=== PATIENT | female | born 1930 | race Caucasian/White ===

== ENCOUNTER 2019-09-06 06:05 | Day surgery (SDC) | payer MEDICARE, OTHER ==
[2019-09-05 12:36] LABS: BASOPHILS % (AUTO) 0.8 % (0-1); EOSINOPHILS # (AUTO) 0.1 X10'3 (0-0.9); EOSINOPHILS % (AUTO) 2.4 % (0-6); HEMATOCRIT 36.1 % (35.0-45.0); HEMOGLOBIN 12.4 g/dl (12.0-16.0); LYMPHOCYTES % (AUTO) 19.1 % (21-51); MEAN CORPUSCULAR HEMOGLOBIN 32.8 PG (27.0-31.0); MEAN CORPUSCULAR HGB CONC 34.4 g/dL (33.0-36.5); MEAN CORPUSCULAR VOLUME 95.3 FL (78-98); MEAN PLATELET VOLUME 7.5 FL (7.4-10.4); MONOCYTES # (AUTO) 0.9 X10'3 (0-0.9); NEUTROPHILS # (AUTO) 3.3 X10'3 (1.8-7.7); NEUTROPHILS % (AUTO) 60.7 % (42-75); PLATELET COUNT 219 X10'3 (140-440); RED BLOOD COUNT 3.79 X10'6 (4.20-5.60); RED CELL DISTRIBUTION WIDTH 13.3 % (11.5-14.5); WHITE BLOOD COUNT 5.4 X10'3 (4.5-11.0)
[2019-09-05 12:46] LABS: ALBUMIN 3.7 G/DL (3.4-5.0); ANION GAP 11 (8-16); BLOOD UREA NITROGEN 41 MG/DL (7-18); CALCIUM 9.5 MG/DL (8.5-10.1); CHLORIDE 107 MMOL/L (99-107); CREATININE 1.14 MG/DL (0.40-0.90); GLUCOSE 87 MG/DL (70-104); POTASSIUM 3.9 MMOL/L (3.5-5.1); SODIUM 144 MMOL/L (135-145); TOTAL CARBON DIOXIDE 26.3 MMOL/L (24-32); eGFR 45 ML/MIN
[2019-09-05 12:51] LABS: PARTIAL THROMBOPLASTIN TIME 26 SECONDS (22-32)
[2019-09-05 13:16] LABS: TOTAL CELLS COUNTED 100
[2019-09-05 13:17] LABS: PLATELET ESTIMATE NORMAL
[~2019-09-06] VITALS: Ht 152.4 cm; Wt 85.3 kg
[2019-09-06] VITALS (13 sets, daily range): BP systolic 99–150; BP diastolic 41–74
[2019-09-06] MEDS ORDERED: ATOR20TA PO (06:30)
[2019-09-06] MEDS ORDERED: ESOM20CA PO (06:30)
[2019-09-06] MEDS ORDERED: VALS1TAB77 PO (06:30)
[2019-09-06] MEDS ORDERED: FURO-150 PO (06:30)
[2019-09-06] MEDS ORDERED: SYN0.112T PO (06:30)
[2019-09-06] MEDS ORDERED: normal saline 1000ml 1,000 ML IV SCH (06:45)
[2019-09-06] MEDS ORDERED: cefazolin/dext.iso 2gm/100ml 100 ML IV ONE (06:45)
[2019-09-06] MEDS ORDERED: fentaNYL/PF 50MCG/1 ML 2ML syringe ONE (07:40)
[2019-09-06] MEDS ORDERED: LIDOcaine 1% W/epiNEPHrine 1:100,000 20ml vial ONE ×2 (07:40→08:32)
[2019-09-06] MEDS ORDERED: ceFAZolin 1000mg inj ONE (07:40)
[2019-09-06] MEDS ORDERED: midazolam 2 mg/2 ml injection ONE (07:40)
[2019-09-06] MEDS ORDERED: HYDROcodone/acetaminophen 10/325mg tab PO PRN ×2 (10:00→10:10)
[2019-09-06] MEDS ORDERED: HYDROcodone/acetaminophen 5mg/325mg tablet PO PRN ×2 (10:00→10:10)
[2019-09-06] MEDS ORDERED: vancomycin/NS 1 GM ADD-VANTAGE 250 ML X 1 DOSE IV ONE (10:15)
[2019-09-06] MEDS ORDERED: normal saline 1000ml 1,000 ML IV ONE (10:15)
[2019-09-06] MEDS ORDERED: VANCOMYCIN 1gm/H2O 200ml PB 200 ML IV ONE (11:00)
--- NOTE | 2019-09-06 11:05 | NUR ---
Pt taken to Xray via WC.
[2019-09-06] MEDS ORDERED: ceFAZolin 1GM/D5W- ADD-VANTAGE 50 ML IV SCH ×2 (16:00)
== END 2019-09-06 15:15 | disposition home or self-care (01) ==
LOC: SSTAY O 06:05
PROVIDERS: ATTEND Internal Medicine Cardiovascular Disease
DX: I49.5 Sick sinus syndrome (principal); I10 Essential (primary) hypertension; J44.9 Chronic obstructive pulmonary disease, unspecified; E78.5 Hyperlipidemia, unspecified; E03.9 Hypothyroidism, unspecified; Z88.2 Allergy status to sulfonamides; Z88.8 Allergy status to other drugs, medicaments and biological substances; Z79.899 Other long term (current) drug therapy; Z82.49 Family history of ischemic heart disease and other diseases of the circulatory system; Z90.710 Acquired absence of both cervix and uterus; Z90.49 Acquired absence of other specified parts of digestive tract; Z79.01 Long term (current) use of anticoagulants
CPT/HCPCS: 33208; 36415; 71046; 80048; 85025; 85610; 85730; 93005; 99152; 99153; C1785; C1894; C1898; J0690; J2250; J3010; J3370; J7030; A4565; A4620